=== PATIENT | male | born 1965 | race African-American/Black ===

== ENCOUNTER 2023-05-05 14:24 | Outpatient (REF) | payer BC, SELFPAY | END 2023-05-05 14:25 | disposition home or self-care (01) | LOC: HO.SH 14:24 | PROVIDERS: Visit Provider Internal Medicine | DX: Z13.89 Encounter for screening for other disorder (principal) ==

== ENCOUNTER 2023-05-12 14:14 | Outpatient (REF) | payer BC, SELFPAY ==
--- NOTE | 2023-05-13 11:19 | MHC.AU.ATI ---
Adult Audiological Evaluation- Tinnitus Date of Visit: 05/12/23 Reason for Appointment: Lai visited for a hearing test due to bothersome tinnitus that began after having COVID19 in 2020, where he was hospitalized for about a week. He describes it as a constant dog whistle that no one else can hear which is louder in his left ear than his right ear. He finds it quite bothersome; he reports being diagnosed with Adult Attention Deficit about 5 years ago and feels the tinnitus makes it even harder for him to concentrate. Lai also finds his tinnitus especially noticeable at night, but has been taking medication for a newly diagnosed seizure disorder which helps him fall asleep. He completed the THI with a total score of 84, corresponding to a catastrophic handicap. He reports he tried a white noise yaquelin at one point which helped while using but did not eliminate the tinnitus, so he eventually stopped using it. He does not notice any particular patterns as to things that make it better or worse. Lai does not report particular concerns about his hearing. He has a significant history of occupational noise exposure where he is required to use hearing protection and states he has always been diligent about this. He reports a history of headaches, 2-3x/week, not always requiring OTC painkillers. He notes occasional unsteadiness which he associates with his seizure disorder. No reported family history of hearing loss. Does patient feel they have a hearing loss?: No Has hearing been tested previously?: No (occupational screenings only) Hearing Handicap Inventory: HHIE SCORE: 0 Based on HHIE score, patient has: No perceived hearing handicap Ear History: Ear Deformity: None Reported Recent Ear Drainage: None Reported Recent Ear Pain: None Reported Family History of Hearing Loss?: No Recent Ear Infections: None Reported Ear Infections in Childhood: None Reported History of Ear Wax Buildup: None Reported Previous Ear Surgery: None Reported Bothersome Tinnitus/Ringing/Noises in Ears: Both Ears Ear used on the phone: Left Ear Blocked/Full Sensation in Ear(s): None Reported History of occupational noise exposure?: Yes: Diligent use of hearing protection reported History: No Medical History: Medical History: Dizziness or Unsteadiness Headache Seizure Disorder Medication List: Vyvanse Lexapro Lacosamide Cabergoline Otoscopy: Right Ear: Unremarkable Left Ear: Unremarkable Tympanometry: Tympanometry performed due to: To assess integrity of the middle ear system Right Ear: Normal Middle Ear System (Type A) Left Ear: Hypercompliant Middle Ear System (Type Ad) Otoacoustic Emissions Frequency Range Used: 1.6-8 kHz Right Ear Results: Absent 4.5 & 7.1 kHz, otherwise present Analysis: Reduced/Absent emissions suggest cochlear dysfunction Left Ear Results: Absent 4.5 otherwise present Analysis: Reduced/Absent emissions suggest cochlear dysfunction Hearing Evaluation: Transducer(s) Used: Circumaural Headphones Method: Conventional Audiometry Stimuli Used: Pure Tones Right Ear: Description of Hearing: Within normal limits Left Ear: Description of Hearing: Within normal limits, borderline at 4000 Hz High Frequency Audiometry: Speech Recognition Threshold (SRT): Method Used: MLV Stimuli Used: Spondees Right Ear: 5 dB HL Left Ear: 5 dB HL Word Discrimination: Method: recorded Word Lists Used: NU6 3A Right Ear: 100% @ 55 dB HL Left Ear: 100% @ 55 dB HL Tinnitus Assessment: Tinnitus Match- Pitch/Frequency: 7.1 kHz bilaterally Tinnitus Match- Loudness: Right ear: 16 dB HL / 0 dB SL Left ear: 2 dB HL / 4 dB SL Minimum Masking Level: Right ear: 10 dB HL / 2 dB SL Left ear: 2 dB HL / 2 dB SL Residual inhibition: partial. Lai reported decrease in how bothersome tinnitus was while stimuli was on. Interpretation of Results: Recommendations: Results of hearing evaluation and tinnitus evaluation were discussed. We reviewed anatomy of hearing system and potential relationship between history of noise exposure and tinnitus as well as potential relationship between COVID and tinnitus, especially given time of onset. Lai found informational counseling to be helpful. Discussed sound therapy and CBT/mindfulness/meditation; he plans to explore tinnitus apps and use as needed for relief, and also plans to explore counseling options as he has a psychologist for his seizure disorder that he can ask for a recommendation from. He also expressed interest in seeing an ENT for further evaluation as he wants to be sure there is no underlying medical issue, particularly given the perceived asymmetric nature of his tinnitus. Recommended continued use of hearing protection in noise as well as annual hearing evaluations to monitor hearing, or sooner with suspected changes/new concerns. Lai wishes to return to discuss the option of ear-level masking devices in 1-2 months, after he has had a chance to explore lower tech options on his own. Diagnosis: Primary Diagnosis: H93.13 Tinnitus, Bilateral Services Performed: Comprehensive Audiological Evaluation (CPT 50294) Diagnostic Otoacoustic Emissions (CPT 18247, 26+TC) Tympanometry (CPT 28288) Tinnitus Evaluation, Bilateral (CPT 00180) Signature: Provider: Melissa Vasquez, CCC-A
--- NOTE | 2023-06-19 12:59 | MHC.AU.ATI ---
Adult Audiological Evaluation- Tinnitus Date of Visit: 05/12/23 Reason for Appointment: Lai visited for a hearing test due to bothersome tinnitus that began after having COVID19 in 2020, where he was hospitalized for about a week. He describes it as a constant dog whistle that no one else can hear which is louder in his left ear than his right ear. He finds it quite bothersome; he reports being diagnosed with Adult Attention Deficit about 5 years ago and feels the tinnitus makes it even harder for him to concentrate. Lai also finds his tinnitus especially noticeable at night, but has been taking medication for a newly diagnosed seizure disorder which helps him fall asleep. He completed the THI with a total score of 84, corresponding to a catastrophic handicap. He reports he tried a white noise yaquelin at one point which helped while using but did not eliminate the tinnitus, so he eventually stopped using it. He does not notice any particular patterns as to things that make it better or worse. Lai does not report particular concerns about his hearing. He has a significant history of occupational noise exposure where he is required to use hearing protection and states he has always been diligent about this. He reports a history of headaches, 2-3x/week, not always requiring OTC painkillers. He notes occasional unsteadiness which he associates with his seizure disorder. No reported family history of hearing loss. Does patient feel they have a hearing loss?: No Has hearing been tested previously?: No Ear History: Ear Deformity: None Reported Recent Ear Drainage: None Reported Recent Ear Pain: None Reported Family History of Hearing Loss?: No Recent Ear Infections: None Reported Ear Infections in Childhood: None Reported History of Ear Wax Buildup: None Reported Previous Ear Surgery: None Reported Bothersome Tinnitus/Ringing/Noises in Ears: Both Ears Ear used on the phone: Left Ear Blocked/Full Sensation in Ear(s): None Reported History of occupational noise exposure?: Yes: Diligent use of hearing protection reported History: No Otoscopy: Right Ear: Unremarkable Left Ear: Unremarkable Tympanometry: Tympanometry performed due to: To assess integrity of the middle ear system Right Ear: Normal Middle Ear System (Type A) Left Ear: Hypercompliant Middle Ear System (Type Ad) Otoacoustic Emissions Frequency Range Used: 1.6-8 kHz Right Ear Results: Absent 4.5 & 7.1 kHz, otherwise present Analysis: Reduced/Absent emissions suggest cochlear dysfunction Left Ear Results: Absent 4.5 otherwise present Analysis: Reduced/Absent emissions suggest cochlear dysfunction Hearing Evaluation: Transducer(s) Used: Circumaural Headphones Method: Conventional Audiometry Stimuli Used: Pure Tones Right Ear: Description of Hearing: Within normal limits Left Ear: Description of Hearing: Within normal limits, borderline at 4000 Hz Tinnitus Assessment: Tinnitus Match- Pitch/Frequency: 7.1 kHz bilaterally Tinnitus Match- Loudness: Right ear: 16 dB HL / 0 dB SL Left ear: 2 dB HL / 4 dB SL Minimum Masking Level: Right ear: 10 dB HL / 2 dB SL Left ear: 2 dB HL / 2 dB SL Residual inhibition: partial. Lai reported decrease in how bothersome tinnitus was while stimuli was on. Recommendations: Results of hearing evaluation and tinnitus evaluation were discussed. We reviewed anatomy of hearing system and potential relationship between history of noise exposure and tinnitus as well as potential relationship between COVID and tinnitus, especially given time of onset. Lai found informational counseling to be helpful. Discussed sound therapy and CBT/mindfulness/meditation; he plans to explore tinnitus apps and use as needed for relief, and also plans to explore counseling options as he has a psychologist for his seizure disorder that he can ask for a recommendation from. He also expressed interest in seeing an ENT for further evaluation as he wants to be sure there is no underlying medical issue, particularly given the perceived asymmetric nature of his tinnitus. Recommended continued use of hearing protection in noise as well as annual hearing evaluations to monitor hearing, or sooner with suspected changes/new concerns. Lai wishes to return to discuss the option of ear-level masking devices in 1-2 months, after he has had a chance to explore lower tech options on his own. Diagnosis: Primary Diagnosis: H93.13 Tinnitus, Bilateral Services Performed: Comprehensive Audiological Evaluation (CPT 02467) Diagnostic Otoacoustic Emissions (CPT 39118, 26+TC) Tympanometry (CPT 30381) Tinnitus Evaluation, Bilateral (CPT 74510) Signature: Provider: Melissa Vasquez, [facility]
== END 2023-05-12 14:15 | disposition home or self-care (01) ==
LOC: HO.SH 14:14
PROVIDERS: Visit Provider Internal Medicine
DX: Z01.118 Encounter for examination of ears and hearing with other abnormal findings (principal); H93.13 Tinnitus, bilateral
CPT/HCPCS: 92557; 92567; 92588; 92625

== ENCOUNTER 2023-06-19 12:55 | Outpatient (REF) | payer SELFPAY | END 2023-06-19 12:56 | disposition home or self-care (01) | LOC: HO.HAP 12:55 | PROVIDERS: Visit Provider Internal Medicine | DX: Z13.89 Encounter for screening for other disorder (principal) ==